=== PATIENT | female | born 1965 | race Caucasian/White ===

== ENCOUNTER 2017-07-07 14:58 | Emergency (ER) | payer OTHER ==
--- NOTE | 2017-07-07 15:38 | EDM.PDOC ---
ED HPI GENERAL MEDICAL PROBLEM - General Chief Complaint: Headache Stated Complaint: HEAD PAIN Time Seen by Provider: 07/07/17 15:38 Source of Information: Reports: Patient - History of Present Illness INITIAL COMMENTS - FREE TEXT/NARRATIVE: Patient is here for evaluation of left-sided head pain. She states that she did go to the clinic but was sent here by her PCP. Patient states that she awoke Monday with severe sharp pain to her left side of her head. She states that it did resolve as the day went on. She states that this came back the next 2 mornings. she is having some left ear pain as well. patient did take advil and tylenol and this helped somewhat. patient denies any changes in vision or behavior. she denies any recent illness. she does not get migraines. no real headache history. Left Headache Pain Score (Numeric/FACES): 2 - Related Data Allergies Allergy/AdvReac Type Severity Reaction Status Date / Time No Known Allergies Allergy Verified 07/07/17 15:35 Home Meds: Home Meds Amoxicillin 875 mg PO BID #20 tab 07/07/17 [Rx] Omeprazole Magnesium [Prilosec Otc] 20 mg PO DAILY 07/07/17 [History] Yeast Infection Pill. 1 tab PO DAILY 07/07/17 [History] Past Medical History - Past Surgical History GI Surgical History: Reports: Cholecystectomy, Hernia Repair/Other Female Surgical History: Reports: Tubal Ligation Neurological Surgical History: Reports: Other (See Below) Other Neurological Surgeries/Procedures: carpal tunnel x2 Social & Family History - Tobacco Use Smoking Status *Q: Never Smoker - Caffeine Use Caffeine Use: Reports: Coffee - Recreational Drug Use Recreational Drug Use: No ED ROS GENERAL - Review of Systems Review Of Systems: See Below Constitutional: Reports: No Symptoms HEENT: Reports: Ear Pain (Left). Denies: Eye Pain, Nose Pain Respiratory: Reports: No Symptoms Cardiovascular: Reports: No Symptoms Skin: Reports: No Symptoms Neurological: Reports: Headache. Denies: Confusion, Dizziness, Numbness, Paresthesia, Tingling, Tremors, Change in Speech Psychiatric: Reports: No Symptoms - Physical Exam Exam: See Below Exam Limited By: No Limitations General Appearance: Alert, WD/WN, No Apparent Distress Eye Exam: Bilateral Eye: Periorbital Changes, PERRL, Vision Changes Ears: Normal External Exam, Normal Canal, Other (Left TM bulging and erythematous) Nose: Normal Inspection, Normal Mucosa Throat/Mouth: Normal Inspection, Normal Oropharynx Head Exam: Atraumatic, Normocephalic Neck: Normal Inspection, Supple, Non-Tender, Full Range of Motion Respiratory/Chest: No Respiratory Distress, Lungs Clear, Normal Breath Sounds Cardiovascular: Normal Peripheral Pulses, Regular Rate, Rhythm Neuro Exam (Abbreviated): Alert, Oriented, CN II-XII Intact, Normal Cognition, Normal Gait, No Motor/Sensory Deficits Psychiatric: Normal Affect, Normal Mood Skin Exam: Warm, Dry, Intact Course - Vital Signs Text/Narrative:: Neurologic exam is normal. However, with her symptoms and patient's strong family history of aneurysms CT was obtained. CT without contrast demonstrated no abnormality and CTA was normal with no vessel stenosis or aneurysm. Will treat patient's AOM with amoxicillin, recommended auto insufflation maneuver as well. She is to follow-up with her PCP next week or certainly return to the ER if needed. Last Recorded V/S: Last Vital Signs Temp 96.9 F 07/07/17 15:31 Pulse 73 07/07/17 15:31 Resp 16 07/07/17 15:31 BP 155/86 H 07/07/17 15:31 Pulse Ox 99 07/07/17 15:31 - Orders/Labs/Meds Orders: Active Orders 24 hr Category Date Time Status CTA Head W & W/O Contrast [Ang Head] [CT] Stat Exams 07/07/17 17:54 Taken Head wo Cont [CT] Stat Exams 07/07/17 18:00 Taken Sodium Chloride 0.9% [Saline Flush] Med 07/07/17 18:41 Active 10 ml FLUSH ONETIME PRN Medication Orders Sodium Chloride (Saline Flush) 10 ml FLUSH ONETIME PRN PRN Reason: Keep Vein Open Last Admin: 07/07/17 19:10 Dose: 10 ml Labs: Laboratory Tests 07/07/17 07/07/17 Range/Units 16:20 16:20 WBC 7.81 (3.98-10.04) K/mm3 RBC 4.90 (3.98-5.22) M/mm3 Hgb 14.1 (11.2-15.7) gm/L Hct 41.8 (34.1-44.9) % MCV 85.3 (79.4-94.8) fl MCH 28.8 (25.6-32.2) pg MCHC 33.7 (32.2-35.5) g/dl RDW Std Deviation 44.0 (36.4-46.3) fL Plt Count 279 (182-369) K/mm3 MPV 10.0 (9.4-12.3) fl Neutrophils % (Manual) 75 H (40-60) % Band Neutrophils % 0 (0-10) % Lymphocytes % (Manual) 22 (20-40) % Atypical Lymphs % 0 % Monocytes % (Manual) 2 (2-10) % Eosinophils % (Manual) 1 (0.7-5.8) % Basophils % (Manual) 0 L (0.1-1.2) Platelet Estimate Adequate RBC Morph Comment Normal Sodium 141 (136-145) mEq/L Potassium 4.0 (3.5-5.1) mEq/L Chloride 104 (98-107) mEq/L Carbon Dioxide 27 (21-32) mEq/L Anion Gap 14.0 (5-15) BUN 18 (7-18) mg/dL Creatinine 0.8 (0.55-1.02) mg/dL Est Cr Clr Drug Dosing 69.59 mL/min Estimated GFR (MDRD) > 60 (>60) mL/min BUN/Creatinine Ratio 22.5 H (14-18) Glucose 98 (74-106) mg/dL Calcium 8.9 (8.5-10.1) mg/dL Total Bilirubin 0.2 (0.2-1.0) mg/dL AST 17 (15-37) U/L ALT 24 (14-59) U/L Alkaline Phosphatase 82 (46-116) U/L C-Reactive Protein 0.5 (<1.0) mg/dL Total Protein 6.7 (6.4-8.2) g/dl Albumin 3.5 (3.4-5.0) g/dl Globulin 3.2 gm/dL Albumin/Globulin Ratio 1.1 (1-2) Meds: Medications Generic Name Dose Route Start Last Admin Trade Name Freq PRN Reason Stop Dose Admin Sodium Chloride 10 ml 07/07/17 18:41 07/07/17 19:10 Saline Flush FLUSH 10 ml ONETIME PRN Administration Keep Vein Open Discontinued Medications Generic Name Dose Route Start Last Admin Trade Name Freq PRN Reason Stop Dose Admin Iopamidol 100 ml 07/07/17 18:41 07/07/17 19:10 Isovue-370 (76%) IVPUSH 07/07/17 18:42 100 ml ONETIME ONE Administration Departure - Departure Time of Disposition: 19:40 Disposition: Home, Self-Care 01 Condition: Good Clinical Impression: Head pain Qualifiers: Headache type: unspecified Headache chronicity pattern: acute headache Intractability: not intractable Qualified Code(s): R51 - Headache AOM (acute otitis media) Qualifiers: Otitis media type: suppurative Laterality: left - Discharge Information Prescriptions: Amoxicillin 875 mg PO BID #20 tab Instructions: Otitis Media, Adult Referrals: Smitha Rincon [employer] [Primary Care Provider] - Forms: ED Department Discharge Additional Instructions: CT of your brain and brain vessels was normal. You do have an ear infection on the left. Take the full course of antibiotics, I recommend a probiotic with this. Follow up with your primary care provider next week or certainly return to ER if needed. - My Orders Last 24 Hours: My Active Orders 07/07/17 17:54 CTA Head W & W/O Contrast [Ang Head] [CT] Stat 07/07/17 18:00 Head wo Cont [CT] Stat 07/07/17 18:41 Sodium Chloride 0.9% [Saline Flush] 10 ml FLUSH ONETIME PRN - Assessment/Plan Last 24 Hours: My Active Orders 07/07/17 17:54 CTA Head W & W/O Contrast [Ang Head] [CT] Stat 07/07/17 18:00 Head wo Cont [CT] Stat 07/07/17 18:41 Sodium Chloride 0.9% [Saline Flush] 10 ml FLUSH ONETIME PRN
[2017-07-07] MEDS ORDERED: Sodium Chloride 0.9% 10 ML Syringe FLUSH PRN (18:41)
[2017-07-07] MEDS ORDERED: Iopamidol 755 Mg/ML 100 ML Bottle IVPUSH ONE (18:41)
--- NOTE | 2017-07-09 19:59 | CT ---
Head CT Technique: Multiple axial sections through the brain were obtained. Intravenous contrast was not utilized. Comparison: No previous intracranial imaging. Findings: Ventricles along with basal cisterns and sulci over the convexities are within normal limits for the patient's age. No abnormal parenchymal densities are seen. No evidence of intracranial hemorrhage. No midline shift or mass effect is seen. Bone window settings were reviewed which show no discrete calvarial abnormality. Visualized sinuses are felt to be clear. Impression: 1. Nothing acute is identified on noncontrast head CT study. Diagnostic code #1 Agree with preliminary report issued by [facility] ([facility] preliminary report dictated on 07/07/17, 8:30 PM Central Time)
--- NOTE | 2017-07-09 19:59 | CT ---
CT angiogram of brain Technique: Intravenous contrast was obtained with 3-D MIP images being obtained centered to the [place]. Findings: MIP images shows some narrowing of the right distal vertebral artery which is felt to be artifact as source images appear normal. Both distal vertebral arteries and basilar artery are felt to be patent. Posterior cerebral arteries appear patent. Distal common carotid arteries are patent. Normal appearance of the middle and anterior cerebral arteries are seen. No discrete aneurysm is identified. No focal stenosis or occlusion is seen. Impression: 1. No focal stenosis, occlusion or discrete aneurysm is seen on CT study of the brain as described above. Diagnostic code #1 Agree with preliminary report issued by [facility] ([facility] preliminary report dictated on 07/07/17, 8:32 PM Central Time)
== END 2017-07-07 20:00 | disposition home or self-care (01) ==
LOC: JD.ED 14:58
DX: R51 Headache (principal); H66.92 Otitis media, unspecified, left ear; Z79.899 Other long term (current) drug therapy
CPT/HCPCS: 36415; 70450; 70496; 80053; 85025; 86140; 99284; J7050; Q9967; 99283

== ENCOUNTER 2018-02-11 14:27 | Emergency (ER) | payer OTHER ==
[2018-02-11] MEDS ORDERED: Sodium Chloride 0.9% 10 ML Syringe FLUSH PRN (15:16)
--- NOTE | 2018-02-11 15:22 | EDM.PDOC ---
ED HPI GENERAL MEDICAL PROBLEM - General Chief Complaint: Back Pain or Injury Stated Complaint: BACK PAIN Time Seen by Provider: 02/11/18 15:02 Source of Information: Reports: Patient History Limitations: Reports: No Limitations - History of Present Illness INITIAL COMMENTS - FREE TEXT/NARRATIVE: Patient is a 52 year old female who presents to the E.D. complaining of bilateral low back pain that started yesterday afternoon. States she was pulling weeds yesterday and believes this was the precipitating factor. States she took flexeril and hydrocodone from her allowing her to sleep last night. Pain is described as a spasm like sensation worse on the R>L. Currently the pain is a 6/10. Pain is localized with no radiation. Denies saddle anesthesia and or incontinence to urine/stool. Pain in intermittent worsened with movement. She denies dysuria, n/v, cp, sob, fever,n/t, weakness, or any additional complaints. She has no history of back issues. Right Middle Back Pain Score (Numeric/FACES): 6 - Related Data Allergies Allergy/AdvReac Type Severity Reaction Status Date / Time No Known Allergies Allergy Verified 07/07/17 15:35 Home Meds: Home Meds Omeprazole Magnesium [Prilosec Otc] 20 mg PO DAILY 07/07/17 [History] Cyclobenzaprine [Flexeril] 10 mg PO TID PRN #15 tab 02/11/18 [Rx] Ibuprofen [Motrin] 200 - 600 mg PO Q4H PRN 02/11/18 [History] Lisinopril 5 mg PO DAILY 02/11/18 [History] Tacrolimus [Protopic] 1 applic TOP BID 02/11/18 [History] Terbinafine HCl [Terbinafine] 250 mg PO DAILY 02/11/18 [History] Zolpidem [Ambien] 5 mg PO BEDTIME 02/11/18 [History] Past Medical History - Past Surgical History GI Surgical History: Reports: Cholecystectomy, Hernia Repair/Other Female Surgical History: Reports: Tubal Ligation Neurological Surgical History: Reports: Other (See Below) Other Neurological Surgeries/Procedures: carpal tunnel x2 Social & Family History - Caffeine Use Caffeine Use: Reports: Coffee ED ROS GENERAL - Review of Systems Review Of Systems: ROS reveals no pertinent complaints other than HPI. ED EXAM, GENERAL - Physical Exam Exam: See Below Exam Limited By: No Limitations General Appearance: Alert, WD/WN, No Apparent Distress Ears: Hearing Grossly Normal Nose: Normal Inspection Throat/Mouth: Normal Voice, No Airway Compromise Head: Atraumatic Neck: Normal Inspection, Supple Respiratory/Chest: No Respiratory Distress, Lungs Clear, Normal Breath Sounds, No Accessory Muscle Use, Chest Non-Tender Cardiovascular: Normal Peripheral Pulses, Regular Rate, Rhythm Peripheral Pulses: 4+: Brachial (R), Radial (L) GI/Abdominal: Normal Bowel Sounds, Soft, Non-Tender, No Organomegaly, No Distention Back Exam: Normal Inspection, Other (Patient has pain with palpation along the right lower ribs worsened with palpation. Pain is reproducible along the intercostal muscles. No rash, ecchymosis, swelling or bony abnormalities. ). No : CVA Tenderness (L), CVA Tenderness (R), Paraspinal Tenderness, Vertebral Tenderness Extremities: Normal Inspection Neurological: Alert, Oriented, CN II-XII Intact, Normal Cognition, No Motor/ Sensory Deficits Psychiatric: Normal Affect, Normal Mood Skin Exam: Warm, Dry, Intact, Normal Color Course - Vital Signs Last Recorded V/S: Last Vital Signs Temp 97.8 F 02/11/18 15:21 Pulse 71 02/11/18 15:21 Resp 20 02/11/18 15:21 BP 128/60 02/11/18 15:21 Pulse Ox - Orders/Labs/Meds Labs: Laboratory Tests 02/11/18 Range/Units 15:39 Urine Color Yellow (Yellow) Urine Appearance Clear (Clear) Urine pH 7.5 (5.0-8.0) Ur Specific [place] 1.020 (1.005-1.030) Urine Protein Negative (Negative) Urine Glucose (UA) Negative (Negative) Urine Ketones Negative (Negative) Urine Occult Blood Negative (Negative) Urine Nitrite Negative (Negative) Urine Bilirubin Negative (Negative) Urine Urobilinogen 0.2 (0.2-1.0) Ur Leukocyte Esterase Negative (Negative) Urine RBC 0-5 (0-5) /hpf Urine WBC 0-5 (0-5) /hpf Ur Epithelial Cells 0-5 (0-5) /hpf Urine Bacteria Few (FEW) /hpf Urine Mucus Not seen (FEW) /hpf Meds: Medications Discontinued Medications Generic Name Dose Route Start Last Admin Trade Name Freq PRN Reason Stop Dose Admin Hydrocodone Bitart/Acetaminophen 1 tab 02/11/18 16:01 02/11/18 16:09 [place] 325-5 Mg PO 02/11/18 16:02 1 tab ONETIME ONE Administration Cyclobenzaprine HCl 10 mg 02/11/18 16:01 02/11/18 16:09 Flexeril PO 02/11/18 16:02 10 mg ONETIME ONE Administration Ketorolac Tromethamine 60 mg 02/11/18 16:01 02/11/18 16:09 Toradol IM 02/11/18 16:02 60 mg ONETIME ONE Administration Sodium Chloride 10 ml 02/11/18 15:16 Saline Flush FLUSH ASDIRECTED PRN Keep Vein Open - Re-Assessments/Exams Free Text/Narrative Re-Assessment/Exam: Patient has spasms along the right lateral chest with palpation along the intercostal muscles. This was reproducible. Relieved with rest and not pushing on it. Patient has no urinary symptoms. UA had been obtained to ensure no blood present concerning for kidney stone. She has no history kidney stones. She was performing some physical activities yesterday that has precipitated the discomfort. She was pulling weeds in her garden all day. She did take Flexeril and [place] last night with some relief. Had similar discomfort this morning. Ordered norco 5-325x1 PO, toradol 60mg IM, and flexeril 10mg PO. 170 UA is negative. 170 Reassessment, patients pain has improved. Will discharge patient home with instructions as documented. 02/11/18 17:08 Pain persist but better. She is ready to be discharged home with instructions as documented. Departure - Departure Time of Disposition: 17:18 Disposition: Home, Self-Care 01 Condition: Good Clinical Impression: Right-sided thoracic back pain Qualifiers: Chronicity: acute Qualified Code(s): M54.6 - Pain in thoracic spine Prescriptions: Cyclobenzaprine [Flexeril] 10 mg PO TID PRN #15 tab PRN Reason: Spasms Instructions: Back Pain, Adult, Thoracic Strain, Muscle Strain, [id number], Pain Medicine Instructions, [id number], Back Injury Prevention Referrals: Marcia Devries NP [Primary Care Provider] - Forms: ED Department Discharge, ED Return to Work/School Form Additional Instructions: Suspect cause of pain is more likely muscle strain since you reported pulling weeds yesterday. There was no fall or trauma suggesting possible rib fractures. No swelling, ecchymosis, or rash present. You were administered norco, flexeril , and toradol while in the E.D. No driving today since receiving a sedative medication. Take Tylenol 650 mg every 6 hours and ibuprofen 600 mg every 6 hours in alternating fashion for pain. Utilize heat and cold compresses to the affected area to reduce pain. Apply topical Biofreeze as needed. Take Flexeril one tab 3 times a day as needed for muscle spasms. Please return to the ED if you develop any new or worsening symptoms. Follow-up with your PCP this week for reevaluation. Do not drive while taking the Flexeril.
[2018-02-11] MEDS ORDERED: Acetaminophen/HYDROcodone 325-5 MG Tab PO ONE (16:01)
[2018-02-11] MEDS ORDERED: Ketorolac 60 MG/2 ML SDV IM ONE (16:01)
[2018-02-11] MEDS ORDERED: Cyclobenzaprine 10 MG Tab PO ONE (16:01)
== END 2018-02-11 17:45 | disposition home or self-care (01) ==
LOC: JD.ED 14:27
DX: M54.6 Pain in thoracic spine (principal); Z79.899 Other long term (current) drug therapy
CPT/HCPCS: 81001; 96372; 99284; A9270; J1885; 99283

== ENCOUNTER 2019-10-28 09:30 | Day surgery (SDC) | payer OTHER ==
[~2019-10-28 09:30] MED LIST: Lactated Ringers 1,000 ML IV SCH; Lidocaine 1%/Sod Bicarbonate in NS 8.4% 1 ML Syringe IDERM PRN; Midazolam 1 MG/ML 2 ML SDV ONE; Propofol 200 MG/20 ML SDV ONE; Sodium Chloride 0.9% 10 ML Syringe FLUSH PRN
[2019-10-28] MEDS ORDERED: Propofol 200 MG/20 ML SDV ONE ×2 (09:31→14:30)
[2019-10-28] MEDS ORDERED: Lidocaine 1% 4 ML ONE ×3 (09:33→12:06)
[2019-10-28] MEDS ORDERED: ePHEDrine/Normal Saline 25 MG/5 ML Syringe ONE (09:39)
--- NOTE | 2019-10-28 09:39 | PCM.PREANE ---
Preanesthetic Assessment - Anesthesia/Transfusion/Family Hx Anesthesia History: Prior Anesthesia Without Reaction Family History of Anesthesia Reaction: No Transfusion History: No Prior Transfusion(s) Intubation History: Unknown - Review of Systems General: No Symptoms Pulmonary: No Symptoms (Former smoker quit 12/02/2015 (0.5 pack/day times 25 yrs.) ), Cough Cardiovascular: No Symptoms (History of HTN, Historyof bicuspid aortic valve with noted aortic insufficiency, history of PVC's) Gastrointestinal: No Symptoms (GERD), Hematochezia Neurological: No Symptoms Other: Reports: Easy Bruising, Anxiety (generalized anxiety disorder) - Physical Assessment NPO Status Date: 10/28/19 NPO Status Time: 02:00 Vital Signs: HR:70 Sat:98% BP:123/68 Temp:16 Resp:16 Height: 1.6 m Weight: 91 kg ASA Class: 2 Mental Status: Alert & Oriented x3 Airway Class: Mallampati = 2 Dentition: Reports: Normal Dentition, Caries Thyro-Mental Finger Breadths: 3 Mouth Opening Finger Breadths: 3 ROM/Head Extension: Full Lungs: Clear to Auscultation, Normal Respiratory Effort Cardiovascular: Regular Rhythm, Irregular Rhythm - Lab Values: All labs reviewed and noted and within acceptable ranges to proceed with scheduled procedure. - Imaging/EKG Impressions: Echocardiogram 2018: EF = 55-60%, mild aortic valve regurgitation, frequent PVC's 2018: negative stress test. - Allergies Allergies/Adverse Reactions: Allergies Allergy/AdvReac Type Severity Reaction Status Date / Time No Known Allergies Allergy Verified 10/25/19 12:51 - Anesthesia Plan Pre-Op Medication Ordered: None - Acknowledgements Anesthesia Type Planned: MAC Pt an Appropriate Candidate for the Planned Anesthesia: Yes Alternatives and Risks of Anesthesia Discussed w Pt/Guardian: Yes Pt/Guardian Understands and Agrees with Anesthesia Plan: Yes PreAnesthesia Questionnaire HEENT History: Reports: Impaired Vision Cardiovascular History: Reports: Heart Murmur, High Cholesterol, Hypertension, Other (See Below) Other Cardiovascular History: bicuspid aortic valve, aortic insufficiecncy, ventricular ectopy, arrythmia, congenital heart disease Respiratory History: Reports: None Gastrointestinal History: Reports: GERD Genitourinary History: Reports: None RN APPEALS History: Reports: Ectopic , , Other (See Below) Other OB/BYN History: pre menopausal, LGSIL, salpingectomy Musculoskeletal History: Reports: None Neurological History: Reports: None Psychiatric History: Reports: Anxiety Endocrine/Metabolic History: Reports: None Hematologic History: Reports: None Immunologic History: Reports: None Oncologic (Cancer) History: Reports: None Dermatologic History: Reports: None - Past Surgical History Head Surgeries/Procedures: Reports: None Cardiovascular Surgical History: Reports: None Respiratory Surgical History: Reports: None GI Surgical History: Reports: Cholecystectomy, Hernia, Inguinal Female Surgical History: Reports: D&C Male Surgical History: Reports: None Endocrine Surgical History: Reports: None Neurological Surgical History: Reports: None Musculoskeletal Surgical History: Reports: Carpal Tunnel Oncologic Surgical History: Reports: None Dermatological Surgical History: Reports: None - SUBSTANCE USE Smoking Status *Q: Former Smoker Recreational Drug Use History: No - HOME MEDS Home Medications: Home Meds Omeprazole Magnesium [Prilosec Otc] 20 mg PO DAILY 07/07/17 [History] Ibuprofen [Motrin] 200 - 600 mg PO Q4H PRN 02/11/18 [History] Lisinopril 5 mg PO DAILY 02/11/18 [History] Zolpidem [Ambien] 5 mg PO BEDTIME 02/11/18 [History] Cholecalciferol (Vitamin D3) [Vitamin D3] 1,000 mcg PO DAILY 10/25/19 [History] Lactobacillus Acidophilus [Probiotic] 1 cap PO DAILY 10/25/19 [History] - CURRENT (IN HOUSE) MEDS Current Meds: Current Medications Lactated Ringer's (Ringers, Lactated) 1,000 mls @ 125 mls/hr IV ASDIRECTED GAGAN Stop: 10/28/19 23:00 Lidocaine/Sodium Bicarbonate (Buffered Lidocaine 1% In Ns 8.4%) 0.25 ml IDERM ONETIME PRN PRN Reason: Prior to IV Start Stop: 10/28/19 23:00 Sodium Chloride (Saline Flush) 10 ml FLUSH ASDIRECTED PRN PRN Reason: Keep Vein Open Stop: 10/28/19 23:00
--- NOTE | 2019-10-28 11:40 | PCM.HP.2 ---
H&P History of Present Illness - General Date of Service: 10/28/19 Source of Information: Patient History Limitations: Reports: No Limitations - History of Present Illness Initial Comments - Free Text/Narative: Ms Sewell is a 53 yo F with hx of GERD who presents for colonoscopy and EGD. The patient has mild hematochezia consisting of BRBPR intermittently but no abdominal pain, nausea or vomiting, She denies family history of colon cancer. She also has long standing GERD controlled with PPIS. She has benton taking PPIs for the past 10 years and unable to wean. She denies any other problems. Onset of Symptoms: Reports: Other Duration of Symptoms: Reports: Constant (long standing GERD, mild hematochezia) Location: Reports: Abdomen Quality: Reports: Other (no pain) Improves with: Reports: None Worsens with: Reports: None - Related Data Allergies/Adverse Reactions: Allergies Allergy/AdvReac Type Severity Reaction Status Date / Time No Known Allergies Allergy Verified 10/25/19 12:51 Home Medications: Home Meds Omeprazole Magnesium [Prilosec Otc] 20 mg PO DAILY 07/07/17 [History] Ibuprofen [Motrin] 200 - 600 mg PO Q4H PRN 02/11/18 [History] Lisinopril 5 mg PO DAILY 02/11/18 [History] Zolpidem [Ambien] 5 mg PO BEDTIME 02/11/18 [History] Cholecalciferol (Vitamin D3) [Vitamin D3] 1,000 mcg PO DAILY 10/25/19 [History] Lactobacillus Acidophilus [Probiotic] 1 cap PO DAILY 10/25/19 [History] Past Medical History HEENT History: Reports: Impaired Vision Cardiovascular History: Reports: Heart Murmur, High Cholesterol, Hypertension, Other (See Below) Other Cardiovascular History: bicuspid aortic valve, aortic insufficiecncy, ventricular ectopy, arrythmia, congenital heart disease Respiratory History: Reports: None Gastrointestinal History: Reports: GERD Genitourinary History: Reports: None CDC ASSOCIATE History: Reports: Ectopic , , Other (See Below) Other OB/BYN History: pre menopausal, LGSIL, salpingectomy Musculoskeletal History: Reports: None Neurological History: Reports: None Psychiatric History: Reports: Anxiety Endocrine/Metabolic History: Reports: None Hematologic History: Reports: None Immunologic History: Reports: None Oncologic (Cancer) History: Reports: None Dermatologic History: Reports: None - Past Surgical History Head Surgeries/Procedures: Reports: None Cardiovascular Surgical History: Reports: None Respiratory Surgical History: Reports: None GI Surgical History: Reports: Cholecystectomy, Hernia, Inguinal Female Surgical History: Reports: D&C Male Surgical History: Reports: None Endocrine Surgical History: Reports: None Neurological Surgical History: Reports: None Musculoskeletal Surgical History: Reports: Carpal Tunnel Oncologic Surgical History: Reports: None Dermatological Surgical History: Reports: None Social & Family History - Tobacco Use Smoking Status *Q: Former Smoker Used Tobacco, but Quit: Yes Month/Year Tobacco Last Used: 11/2015 - Caffeine Use Caffeine Use: Reports: Coffee Other Caffeine Use: herbal non caffeinie - Recreational Drug Use Recreational Drug Use: No Drug Use in Last 12 Months: No H&P Review of Systems - Review of Systems: Review Of Systems: See Below General: Reports: No Symptoms HEENT: Reports: No Symptoms Pulmonary: Reports: No Symptoms Cardiovascular: Reports: No Symptoms Gastrointestinal: Reports: No Symptoms Genitourinary: Reports: No Symptoms Musculoskeletal: Reports: No Symptoms Skin: Reports: No Symptoms Psychiatric: Reports: No Symptoms Exam - Exam Exam: See Below - Vital Signs Vital Signs: Last Vital Signs Temp 98.1 F 10/28/19 09:40 Pulse 70 10/28/19 09:40 Resp 16 10/28/19 09:40 BP 123/68 10/28/19 09:40 Pulse Ox 98 10/28/19 09:40 Weight: 91 kg - Exam General: Alert, Oriented, Cooperative, Mild Distress Lungs: Clear to Auscultation, Normal Respiratory Effort Cardiovascular: Regular Rate, Regular Rhythm, Normal S1, Normal S2 GI/Abdominal Exam: Normal Bowel Sounds, Soft, Non-Tender, No Organomegaly, No Distention - Patient Data Lab Results Last 24 hrs: Laboratory Results - last 24 hr 10/28/19 Range/Units 09:55 Sodium 137 (136-145) mEq/L Potassium 4.5 (3.5-5.1) mEq/L Chloride 102 (98-107) mEq/L Carbon Dioxide 26 (21-32) mEq/L Anion Gap 13.5 (5-15) BUN 9 (7-18) mg/dL Creatinine 1.0 (0.55-1.02) mg/dL Est Cr Clr Drug Dosing 54.44 mL/min Estimated GFR (MDRD) 58 (>60) mL/min BUN/Creatinine Ratio 9.0 L (14-18) Glucose 106 (74-106) mg/dL Calcium 9.2 (8.5-10.1) mg/dL Result Diagrams: 10/28/19 09:55 Sepsis Event Note - Focused Exam Vital Signs: Vital Signs Temp Pulse Resp BP Pulse Ox 10/28/19 09:40 98.1 F 70 16 123/68 98 Date Exam was Performed: 10/28/19 Time Exam was Performed: 11:34 Problem List Initiated/Reviewed/Updated: No Orders Last 24hrs: Active Orders 24 hr Category Date Time Status Peripheral IV Care [RC] . DIRECTED Care 10/28/19 07:00 Active Verify Patient Consent Obtain [RC] ASDIRECTED Care 10/28/19 07:00 Active Lactated Ringers [Ringers, Lactated] 1,000 ml Med 10/28/19 07:00 Active IV ASDIRECTED Lidocaine 1%/Sod Bicarbonate [Buffered Lidocaine 1% in Med 10/28/19 07:00 Active NS 8.4%] 0.25 ml IDERM ONETIME PRN Sodium Chloride 0.9% [Saline Flush] Med 10/28/19 07:00 Active 10 ml FLUSH ASDIRECTED PRN Medication Administration Instruction [OM.PC] Routine Oth 10/28/19 07:00 Ordered Peripheral IV Insertion Adult [OM.PC] Routine Oth 10/28/19 07:00 Ordered Medication Orders Lactated Ringer's (Ringers, Lactated) 1,000 mls @ 125 mls/hr IV ASDIRECTED GAGAN Stop: 10/28/19 23:00 Last Admin: 10/28/19 09:55 Dose: 125 mls/hr Lidocaine/Sodium Bicarbonate (Buffered Lidocaine 1% In Ns 8.4%) 0.25 ml IDERM ONETIME PRN PRN Reason: Prior to IV Start Stop: 10/28/19 23:00 Sodium Chloride (Saline Flush) 10 ml FLUSH ASDIRECTED PRN PRN Reason: Keep Vein Open Stop: 10/28/19 23:00 Assessment/Plan Comment:: Patient had GERD and intermittent hematochezia. Never has prior EGD/ Colonoscopy. We will proceed with EGD and colonoscopy. Risks, benefits and alternatives have been discussed with the patient and informed consent was obtained.
[2019-10-28] MEDS ORDERED: Midazolam 1 MG/ML 2 ML SDV ONE (11:59)
[2019-10-28] MEDS ORDERED: fentaNYL 100 MCG/2 ML SDV ONE (12:19)
[2019-10-28] MEDS ORDERED: Lactated Ringers 1,000 ML ONE (12:30)
--- NOTE | 2019-10-28 13:19 | PCM48HPAN ---
Post Anesthesia Note - EVALUATION WITHIN 48HRS OF ANESTHETIC Vital Signs in Normal Range: Yes Patient Participated in Evaluation: Yes Respiratory Function Stable: Yes Airway Patent: Yes Cardiovascular Function Stable: Yes Hydration Status Stable: Yes Pain Control Satisfactory: Yes Nausea and Vomiting Control Satisfactory: Yes Mental Status Recovered: Yes Vital Signs: Last Vital Signs Temp 36.7 C 10/28/19 09:40 Pulse 70 10/28/19 09:40 Resp 16 10/28/19 09:40 BP 123/68 10/28/19 09:40 Pulse Ox 98 10/28/19 09:40
--- NOTE | 2019-10-28 13:49 | OR ---
DATE OF OPERATION: 10/28/2019 SURGEON: Pushpa Ware MD PREOPERATIVE DIAGNOSIS: 1. GERD 2. Intermittent hematochezia and need for screening colonoscopy. OPERATION PERFORMED: 1. Esophagogastroduodenoscopy with biopsies. 2. Colonoscopy. ESTIMATED BLOOD LOSS: Minimal. INDICATION AND CONSENT: The patient is a 53-year-old female who has a long-standing gastroesophageal reflux disease. She has been on PPI for more than 10 years. The patient has been unable to wean from PPIs as symptoms recur when weaning. The patient also has been having intermittent mild hematochezia, mostly bright red blood with wiping, but no melena. No abdominal pain. No history of colon cancer. The patient presented for evaluation of these symptoms in addition to the fact that she is 53 and needing screening colonoscopy. EGD and colonoscopy were recommended. Risks, benefits, and alternatives were discussed with the patient in detail. All questions were answered and informed consent was obtained. DESCRIPTION OF PROCEDURE: The patient was taken to the procedure room, placed in left lateral decubitus position. Following induction of monitored anesthesia care, we began with esophagogastroduodenoscopy. Scope was then placed into the mouth, advanced all the way to the second portion of duodenum. Duodenum appeared normal. The stomach, antrum appeared normal. Body appeared normal. Fundus had some scattered small polyps, most of them less than 3 mm. A few of these polyps were biopsied for pathologic examination. They are more likely fundic polyps. On retroflexion, there was no hiatal hernia. The cardia appeared normal. The scope was withdrawn to the GE junction. This appeared to be regular, but there was inflammation at the distal esophagus. Therefore, biopsies were taken at the GE junction and distal esophagus with cold forceps for pathologic examination. Then, at this point, the air was suctioned out of the stomach and scope was withdrawn. No immediate complications. Next, we proceeded with colonoscopy. Perianal exam was normal. Digital rectal exam revealed grade 2 hemorrhoids without stigmata of bleeding. Then, scope was placed and advanced all the way to the cecum. Appendiceal orifice and ileocecal valve were photographed. Of note, this exam was technically challenging and difficult because of the patient's anatomy. There was tendency for the scope to form loops. Multiple maneuvers were used including turning the patient supine and abdominal pressure. Eventually, we were able to get the scope down to the cecum. On withdrawal, the colonic wall was examined thoroughly. There were no lesions or diverticulosis. On retroflexion, there were grade 2 hemorrhoids without stigmata of bleeding. The colon was suctioned out and the scope was withdrawn. No immediate complications. The patient was awoken from monitored anesthesia care and taken to the PACU for further recovery. The patient will follow up with B[facility]bara in 2 weeks for discussion of her EGD biopsies. If the patient is unable to wean from PPIs, then another option would be to pursue to anti-reflux surgery if she wants to potentially get off the medications. Repeat screening colonoscopy is recommended after 10 years. POSTOPERATIVE DIAGNOSIS: ANESTHESIA: MMODAL /[id number] VALERY
== END 2019-10-28 13:50 | disposition home or self-care (01) ==
LOC: JD.SDS 09:30
PROVIDERS: ATTEND Surgery
DX: Z12.11 Encounter for screening for malignant neoplasm of colon (principal); K21.0 Gastro-esophageal reflux disease with esophagitis; K92.1 Melena; K64.1 Second degree hemorrhoids; E78.00 Pure hypercholesterolemia, unspecified; I10 Essential (primary) hypertension; Z87.891 Personal history of nicotine dependence; Z79.899 Other long term (current) drug therapy
CPT/HCPCS: 36415; 43239; 45378; 80048; J2001; J2250; J2704; J3010; J7120; 00813; J7050

== ENCOUNTER 2023-01-06 12:32 | Emergency (ER) | payer OTHER ==
[2023-01-06] MEDS ORDERED: Lidocaine 1% 10 ML MDV INJECT ONE (14:03)
[2023-01-06] MEDS ORDERED: Bupivacaine 0.5% 10 ML SDV INJECT ONE (14:03)
== END 2023-01-06 17:10 | disposition home or self-care (01) ==
LOC: JD.ED 12:32
DX: S63.285A Dislocation of proximal interphalangeal joint of left ring finger, initial encounter (principal); I10 Essential (primary) hypertension; K21.9 Gastro-esophageal reflux disease without esophagitis; Z79.899 Other long term (current) drug therapy; Z86.16 Personal history of COVID-19; W18.09XA Striking against other object with subsequent fall, initial encounter
CPT/HCPCS: 26770; 73140; 99283; J3490; 26700